=== PATIENT | male | born 1945 | race Caucasian/White ===

== ENCOUNTER 2017-07-11 08:58 | Emergency (ER) | payer OTHER ==
[~2017-07-11] VITALS: Ht 182.9 cm; Wt 101.0 kg
[2017-07-11 09:14] VITALS: TEMP 36.6; Ht 182.9 cm; Wt 101.0 kg
[2017-07-11] MEDS ORDERED: INDSR/120 PO (09:30)
[2017-07-11] MEDS ORDERED: SODIUM CHLORIDE 0.9% 1000ML 1,000 ML IV ONE (09:30)
[2017-07-11] MEDS ORDERED: RIVA1TAB4 PO (09:30)
[2017-07-11] MEDS ORDERED: HYZ/10015 PO (09:30)
[2017-07-11] MEDS ORDERED: GLC/500 PO (09:30)
[2017-07-11] MEDS ORDERED: TAMS0.4C38 PO (09:30)
[2017-07-11] MEDS ORDERED: FINA5TAB4 PO (09:30)
[2017-07-11] MEDS ORDERED: SIMV10TA5 PO (09:30)
[2017-07-11] MEDS ORDERED: LSN40 PO (09:30)
[2017-07-11] MEDS ORDERED: APR50 PO (09:30)
[2017-07-11] MEDS ORDERED: CEFD300C2 PO (09:31)
[2017-07-11] MEDS ORDERED: OPTIRAY 320 IV PRN (09:45)
[2017-07-11 10:00] LABS: BASO % 0.2 %; BASO ABS # 0.02 K/uL (0-0.2); COMPLETE YES; EOS % 3.8 %; HEMATOCRIT 40.4 % (42-52); IG% 0.2 %; LYMPH % 19.5 %; LYMPH ABS # 1.66 K/uL (1.2-3.4); MEAN CELL VOLUME 93.7 fL (80-100); MEAN CORPUSCULAR HEMOGLOBIN 32.3 pg (25-34); MEAN CORPUSCULAR HGB CONC 34.4 g/dl (32-36); MEAN PLATELET VOLUME 11.1 fL (7.4-10.4); MONO % 6.2 %; NEUT % 70.1 %; PLATELET COUNT 148 K/uL (130-400); RED BLOOD COUNT 4.31 M/uL (4.7-6.1); WHITE BLOOD COUNT 8.53 K/uL (4.8-10.8)
--- NOTE | 2017-07-11 10:15 | EMERGENCY ROOM VISIT NOTE ---
ED Visit Note First contact with patient: 09:05 I have seen and examined this patient with Gilmer De La Cruz and generally agree with the treatment plan as discussed. Current/Historical Medications Scheduled Cefdinir (Omnicef), 300 MG PO Q12H Finasteride (Proscar), 5 MG PO DAILY Hctz/Losartan (Hyzaar 25MG/100MG), 1 TAB PO DAILY Hydralazine HCl (Hydralazine HCl), 1 TAB PO UD Lisinopril (Lisinopril), 1 TAB PO DAILY Metformin Hcl (Glucophage), 500 MG PO BID Propranolol La (Inderal La), 120 MG PO DAILY Rivaroxaban (Xarelto), 1 TAB PO DAILY Simvastatin (Zocor), 10 MG PO QPM Tamsulosin Hcl (Flomax), 0.4 MG PO DAILY Allergies Coded Allergies: No Known Allergies (Unverified , 07/11/17) Vital Signs Date Time Temp Pulse Resp B/P (MAP) Pulse Ox O2 Delivery O2 Flow Rate FiO2 07/11/17 09:14 36.6 54 18 189/83 99 Room Air Laboratory Results 07/11/17 09:50 Red Blood Count 4.31, Mean Corpuscular Volume 93.7, Mean Corpuscular Hemoglobin 32.3, Mean Corpuscular Hemoglobin Concent 34.4, Mean Platelet Volume 11.1, Neutrophils (%) (Auto) 70.1, Lymphocytes (%) (Auto) 19.5, Monocytes (%) (Auto) 6.2, Eosinophils (%) (Auto) 3.8, Basophils (%) (Auto) 0.2, Neutrophils # (Auto) 5.98, Lymphocytes # (Auto) 1.66, Monocytes # (Auto) 0.53, Eosinophils # (Auto) 0.32, Basophils # (Auto) 0.02 Test 07/11/17 09:50 White Blood Count 8.53 K/uL (4.8-10.8) Red Blood Count 4.31 M/uL (4.7-6.1) Hemoglobin 13.9 g/dL (14.0-18.0) Hematocrit 40.4 % (42-52) Mean Corpuscular Volume 93.7 fL (80-100) Mean Corpuscular Hemoglobin 32.3 pg (25-34) Mean Corpuscular Hemoglobin Concent 34.4 g/dl (32-36) Platelet Count 148 K/uL (130-400) Mean Platelet Volume 11.1 fL (7.4-10.4) Neutrophils (%) (Auto) 70.1 % Lymphocytes (%) (Auto) 19.5 % Monocytes (%) (Auto) 6.2 % Eosinophils (%) (Auto) 3.8 % Basophils (%) (Auto) 0.2 % Neutrophils # (Auto) 5.98 K/uL (1.4-6.5) Lymphocytes # (Auto) 1.66 K/uL (1.2-3.4) Monocytes # (Auto) 0.53 K/uL (0.11-0.59) Eosinophils # (Auto) 0.32 K/uL (0-0.5) Basophils # (Auto) 0.02 K/uL (0-0.2) RDW Standard Deviation 44.8 fL (36.4-46.3) RDW Coefficient of Variation 13.0 % (11.5-14.5) Immature Granulocyte % (Auto) 0.2 % Immature Granulocyte # (Auto) 0.02 K/uL (0.00-0.02) Medications Administered Medications (Trade) Dose Ordered Sig/Gutierrez Route Start Time Stop Time Status Last Admin Dose Admin Sodium Chloride 1,000 ml @ 200 mls/hr Q5H ONCE IV 07/11/17 09:30 07/11/17 14:29 07/11/17 09:48 200 MLS/HR Departure Information Referrals No Doctor, Assigned (PCP) Patient Instructions [facility]
[2017-07-11 10:25] LABS: BUN/CREATININE RATIO 13.4 (10-20); CREATININE 1.46 mg/dl (0.60-1.40); POTASSIUM 3.5 mmol/L (3.5-5.1)
[2017-07-11] MEDS ORDERED: ACETAMINOPHEN 500 MG TAB PO STA (10:39)
--- NOTE | 2017-07-11 11:44 | DIAGNOSTIC IMAGING REPORT ---
CT NECK WITH INTRAVENOUS CONTRAST HISTORY: under tongue swollen and left-sided lymphadenopathy TECHNIQUE: Multiaxial CT images of the neck were performed following the use of intravenous contrast. COMPARISON STUDY: None. FINDINGS: The visualized brain parenchyma and orbits are unremarkable. Questionable narrowing of the supraglottic airway is likely transient as the patient's vocal cords appear to be closed. The remaining mucosal airway surfaces are intact. There is a 2.1 cm left thyroid heterogeneous nodule. Mildly enlarged left submandibular lymph nodes. Otherwise, no cervical lymphadenopathy. The visualized lung apices are clear. Mild mucosal thickening and small fluid level seen within the ethmoid air cells and maxillary sinuses. The mastoid air cells are clear. No fractures within the visualized osseous structures. The parotid glands are symmetric. Normal right submandibular gland. Prevertebral soft tissues and the epiglottis are normal in thickness. Mild calcified plaque within the bilateral carotid bulbs. No significant carotid stenosis. Within the left side of the mouth floor there is a 2.7 x 1.1 cm calcified oval-shaped structure. This appears to represent a distal submandibular duct stone. There is mild enhancement and infiltration involving the left submandibular gland. The left submandibular duct is only slightly distended. Therefore, this favors a partially obstructing submandibular duct stone. IMPRESSION: 1. A 2.7 x 1.1 cm calcified oval-shaped structure within the left side of the mouth floor. This is consistent with a distal submandibular duct stone. The left submandibular duct is only slightly distended suggestive of a partially obstructing stone. 2. Mild enhancement and infiltration within the left submandibular gland with mild submandibular lymphadenopathy. This likely represents an associated sialoadenitis. 3. A 2.1 cm heterogeneous left thyroid nodule. Follow-up nonemergent thyroid ultrasound is recommended for further evaluation. Electronically signed by: Leroy Andrade M.D. 07/11/2017 11:43 AM Dictated Date/Time: 07/11/2017 11:34 AM
[2017-07-11] MEDS ORDERED: DEXAMETHASONE INJ 10 MG in SYRINGE 0 ML IV ONE (12:15)
[2017-07-11] MEDS ORDERED: ACET120S PO (12:21)
[2017-07-11] MEDS ORDERED: METH4PAK PO (12:21)
[2017-07-11] MEDS ORDERED: DOXY100C2 PO (12:21)
[2017-07-11 13:02] VITALS: BP 198/88; PULSE 47; O2SAT 94
--- NOTE | 2017-07-12 06:06 | EMERGENCY ROOM VISIT NOTE ---
ED Visit Note First contact with patient: 09:05 Chief Complaint: Swollen glands and trouble swallowing. History of Present Illness: Mr. Clements is a 72-year-old white male who ambulates into the ED complaining of throat and and left-sided throat swelling. Historically patient reports he is status post tonsillectomy. Additionally he reports he's had previous trauma to the throat which has left scar tissue under the tongue. Patient reports he started having developing left-sided throat pain last Iam , 2 days ago. He reports he was seen at the [facility] and reports a rapid strep screen was negative. He was discharged to home on Cefdinir. Patient reports since that visit he has started noticing increasing pain and swelling sensation under his tong and swelling over the left submandibular area. Early he describes the pain as a deep achy sensation. At rest he rates his discomfort 3/10. His pain worsens with swallowing, opening his mouth and occasionally talking. He has not identified any alleviating factors related to the pain. He has not taken any medications for pain prior to arrival at the hospital, but has taken his antibiotic. Associated with his pain he reports he' s had a decreased appetite because the pain with swallowing. 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 He denies fevers, chills, sweats, skin eruptions, skin color changes, headache, dizziness, lightheadedness, hearing changes, ear drainage, voice changes, drooling, neck pain/stiffness, cough, wheezing, shortness of breath, abdominal pain, nausea/vomiting. Review of Systems: As noted above in history of present illness. All body systems were reviewed and found to be negative as noted above. Past Medical History: As previously noted diabetes, hypertension, unspecified skin disorder, kidney stones, status post hip replacement, cholecystectomy, appendectomy and inguinal hernia repair. Current Medications: Medications Dose Route/Sig Max Daily Dose Days Date Category Dose Instructions Omnicef (Cefdinir) 300 Mg Cap 300 Mg PO Q12H 07/11/17 Reported Inderal La (Propranolol HCl) 120 Mg Capcr 120 Mg PO DAILY 07/11/17 Reported Hydralazine HCl 50 Mg Tab 1 Tab PO UD 07/11/17 Reported 3 to 4 times a day Proscar (Finasteride) 5 Mg Tab 5 Mg PO DAILY 07/11/17 Reported Glucophage (Metformin Hcl) 500 Mg Tab 500 Mg PO BID 07/11/17 Reported Flomax (Tamsulosin Hcl) 0.4 Mg Cap 0.4 Mg PO DAILY 07/11/17 Reported Lisinopril 40 Mg Tab 1 Tab PO DAILY 07/11/17 Reported Hyzaar 25MG/100MG (HCTZ/Losartan Potassium) Tab 1 Tab PO DAILY 07/11/17 Reported Zocor (Simvastatin) 10 Mg Tab 10 Mg PO QPM 07/11/17 Reported Xarelto (Rivaroxaban) 20 Mg Tab 1 Tab PO DAILY 30 07/11/17 Reported Allergies to Medications: Patient denies. Social History: Patient is not currently employed; he feels safe in his home environment; he denies tobacco and alcohol use. Physical Examination: Vital Signs: Date Time Temp Pulse Resp B/P (MAP) Pulse Ox O2 Delivery O2 Flow Rate FiO2 07/11/17 13:02 47 20 198/88 94 07/11/17 10:31 50 18 168/85 96 Room Air 07/11/17 09:14 36.6 54 18 189/83 99 Room Air GENERAL: 72-year-old male in mild to moderate distress due to pain, nontoxic- appearing, afebrile and hemodynamically stable. NEUROLOGICAL: Awake, alert and oriented to person, place and time. Answering questions appropriately and following commands. Normal gait. Good hand eye coordination. Primary tremor of the upper extremities was noted. SKIN: Warm, dry and pink. No soft tissue eruptions or trauma noted. HEENT: Atraumatic and normocephalic. No erythema or tenderness over the frontal or maxillary sinuses. External ears are nontender. Auditory canals are pink and patent. Tympanic membranes appear normal without erythema or bulging. PERRLA. Sclera white and conjunctiva pink without drainage. No drainage from naris. Oral cavity moist and pink. Airway is patent. Pharynx is nonerythematous or edematous. Speech normal. Under the tongue is mildly erythematous and edematous. This area moderately tender to palpation. Large left anterior cervical chain lymphadenopathy and there is lymphadenopathy over the right submandibular area. Trachea midline. No jugular venous distention. BACK: No tenderness over the bony spine. No CVA tenderness. THORAX: Lungs sounds are clear to auscultation and equal bilaterally with symmetrical chest wall. No wheezing, rales or rhonchi. No crepitus, tenderness , subcutaneous air or deformities noted. HEART: Regular rate and rhythm. No gallops, rubs or murmurs are appreciated. ABDOMEN: Flat, soft and nontender. Positive bowel sounds in all quadrants. No guarding, rigidity or organomegaly. EXTREMITIES: Moves all extremities well on command and with purpose. All distal neurovascular statuses are intact and equal bilaterally. ED Course: Patient is assessed as noted above. Patient's medication list was reviewed. Laboratory Testing: Test 07/11/17 09:50 Range/Units White Blood Count 8.53 4.8-10.8 K/uL Red Blood Count 4.31 4.7-6.1 M/uL Hemoglobin 13.9 14.0-18.0 g/dL Hematocrit 40.4 42-52 % Mean Corpuscular Volume 93.7 80-100 fL Mean Corpuscular Hemoglobin 32.3 25-34 pg Mean Corpuscular Hemoglobin Concent 34.4 32-36 g/dl Platelet Count 148 130-400 K/uL Mean Platelet Volume 11.1 7.4-10.4 fL Neutrophils (%) (Auto) 70.1 % Lymphocytes (%) (Auto) 19.5 % Monocytes (%) (Auto) 6.2 % Eosinophils (%) (Auto) 3.8 % Basophils (%) (Auto) 0.2 % Neutrophils # (Auto) 5.98 1.4-6.5 K/uL Lymphocytes # (Auto) 1.66 1.2-3.4 K/uL Monocytes # (Auto) 0.53 0.11-0.59 K/uL Eosinophils # (Auto) 0.32 0-0.5 K/uL Basophils # (Auto) 0.02 0-0.2 K/uL RDW Standard Deviation 44.8 36.4-46.3 fL RDW Coefficient of Variation 13.0 11.5-14.5 % Immature Granulocyte % (Auto) 0.2 % Immature Granulocyte # (Auto) 0.02 0.00-0.02 K/uL Sodium Level 141 136-145 mmol/L Potassium Level 3.5 3.5-5.1 mmol/L Chloride Level 105 98-107 mmol/L Carbon Dioxide Level 25 21-32 mmol/L Anion Gap 11.0 3-11 mmol/L Blood Urea Nitrogen 20 7-18 mg/dl Creatinine 1.46 0.60-1.40 mg/dl Est Creatinine Clear Calc Drug Dose 56.3 ml/min Estimated GFR () 54.9 Estimated GFR (Non- 47.4 BUN/Creatinine Ratio 13.4 10-20 Random Glucose 174 70-99 mg/dl Calcium Level 9.0 8.5-10.1 mg/dl Monoscreen NEG NEG IV Contrast Soft Tissue Neck CT: Were reviewed by myself and read by the radiologist showing a 2.7 x 1.1 cm calcified oval shaped structure within the left side of the mouth floor consistent with distal submandibular ductal stone. Left submandibular duct is only slightly distended suggestive of a partially ensuring calculus. Mild effacement and infiltration within the left submandibular gland with mild submandibular lymphadenopathy likely representing sialoadenitis. 2.1 cm heterogeneous left thyroid nodule present. Patient was hydrated with normal saline and given 1 g of Tylenol by mouth for his discomfort. Patient was reassessed multiple times during his stay in the emergency department. Patient was given 10 mg of Decadron IV for information. Patient's case was reviewed with Dr. Roach; we agreed on diagnostic approach , treatment, disposition and plan. Patient was educated about today's findings and instructed on his treatment plan ; he verbalized understanding and agreement with this plan. Clinical Impression: Submandibular duct stone. Decision-Making: Initially my differential diagnosis I considered peritonsillar abscess, soft tissue infarction, lymphadenopathy, submandibular stone, prostatitis and other causes. Disposition: Patient discharged home in stable condition accompanied by male friend; prior to departure he was reassessed and subjectively reported he was feeling the same. Plan: Patient was encouraged to stop his current antibiotic therapy and he was prescribed doxycycline 100 mg 2 times a day for 10 days. Patient was placed on a sliding pain scale of acetaminophen and Tylenol with Codeine; appropriate narcotic precautions were discussed with the patient and his name was checked on the state database and no red flags were noted. Patient was prescribed a Medrol Dosepak for inflammation. Patient was encouraged to stay well-hydrated with increased clear fluids. Patient was encouraged use a liquid or mechanical soft diet until resolution of throat discomfort. Patient was encouraged to suck on lemon drop candies. Patient was encouraged to contact his family physician tomorrow morning and inform them of today's ED visit and request assistance in setting up appropriate ENT appointment when he arrives home mid week. Patient was encouraged return ED for worsening/uncontrolled pain, uncontrolled swelling, fevers, vomiting or any new/concerning symptoms.
== END 2017-07-11 13:04 | disposition home or self-care (01) ==
LOC: C.EDB 09:03
DX: K11.5 Sialolithiasis (principal); E11.9 Type 2 diabetes mellitus without complications; I10 Essential (primary) hypertension; Z87.442 Personal history of urinary calculi; Z96.649 Presence of unspecified artificial hip joint; Z90.49 Acquired absence of other specified parts of digestive tract; Z90.89 Acquired absence of other organs; Z98.890 Other specified postprocedural states; Z79.84 Long term (current) use of oral hypoglycemic drugs; Z79.899 Other long term (current) drug therapy